=== PATIENT | female | born 1975 | race Caucasian/White ===

== ENCOUNTER 2016-11-09 12:36 | Outpatient (CLI) | payer OTHER ==
[2016-11-09] MEDS ORDERED: IOTHALAMATE MEGLUMINE 50 ML VIAL IVP ONE ×2 (14:47)
[2016-11-09] MEDS ORDERED: BUFFERED LIDOCAINE 10 ML SYRINGE IU ONE (14:47)
[2016-11-09] MEDS ORDERED: GADOPENTETATE DIMEGLUMINE 5 ML VIAL IVP ONE ×2 (14:47)
== END 2016-11-09 12:37 | disposition home or self-care (01) ==
DX: M25.812 Other specified joint disorders, left shoulder (principal)
CPT/HCPCS: 23350; 73222; 77002; Q9961

== ENCOUNTER 2017-02-09 08:00 | Outpatient (CLI) | payer OTHER ==
--- NOTE | 2017-02-09 16:31 | MRI Report ---
EXAM: MRI BRAIN WITHOUT CONTRAST EXAM DATE: 02/09/2017 08:57 a.m. CLINICAL HISTORY: Post-concussion syndrome. COMPARISON: None. TECHNIQUE: Multiplanar, multisequence T1-weighted and fluid-sensitive MR sequences of the brain were performed. Sequences optimized for routine evaluation. Other: None. IV Contrast: None. FINDINGS: The diffusion-weighted images are normal. There is no evidence of acute or subacute cerebral infarcti on. The pituitary and sella are normal. The corpus callosum is of normal size and configuration. The lifts and cranes inspector niocervical junction is normal. There is mild mucosal thickening in the bilateral maxillary sinuses. The bilateral parotid spaces exhibit normal signal intensity. The optic nerves demonstrate symmetric signal intensity and size. The T2 axial FLAIR images are norm al. The T2* sequence is normal. There is no evidence of subacute or chronic hemorrhage. IMPRESSION: 1. There is no evidence of acute or subacute cerebral infarction. 2. There is no significant white matter disease or evidence of brain mass. There is no evidence of di ffuse axonal injury. Referring Provider Line: [phone] SITE ID: [id number]
== END 2017-02-09 08:01 | disposition home or self-care (01) ==
LOC: DI 08:00
PROVIDERS: ATTEND Psychiatry & Neurology Neurology
DX: F07.81 Postconcussional syndrome (principal)
CPT/HCPCS: 70551

== ENCOUNTER 2019-08-28 11:18 | Outpatient (CLI) | payer OTHER ==
--- NOTE | 2019-09-02 15:09 | Mammography Report ---
Reason: SCREENING MAMMO Procedure Date: 08/28/2019 Accession Number: [id number] / [id number] Procedure: MGN - Screening Mammo Dig Bilat CPT Code: Final Report FULL RESULT: EXAM: Screening Mammo Dig Bilat DATE: 08/28/2019 11:37 AM CLINICAL HISTORY: Routine screening TECHNIQUE: (B) - Bilateral CC and MLO views were obtained. COMPARISON: 07/02/2017 and 05/16/2016 PARENCHYMAL PATTERN: (D) - The breasts demonstrate heterogeneously dense fibroglandular parenchyma bilaterally. FINDINGS: No significant interval change. There are no suspicious masses, calcifications, or areas of distortion. IMPRESSION: Negative examination. BI-RADS category 1. RECOMMENDATION: (ANNUAL) - Recommend routine annual screening mammography. BI-RADS CATEGORY: (1) - Negative. STANDARD QUALIFYING STATEMENTS: 1. This examination was not reviewed with the aid of Computer-Aided Detection (CAD). 2. A negative or benign imaging report should not preclude biopsy if clinically suspicious findings are present. 3. Dense breasts may obscure an underlying neoplasm. 4. This examination was reviewed without the aid of 3D breast imaging (tomosynthesis).
== END 2019-08-28 11:19 | disposition home or self-care (01) ==
LOC: DI.N 11:18
DX: Z12.31 Encounter for screening mammogram for malignant neoplasm of breast (principal)
CPT/HCPCS: 77067

== ENCOUNTER 2021-10-09 15:37 | Outpatient (CLI) | payer OTHER ==
--- NOTE | 2021-10-10 08:47 | Mammography Report ---
BILATERAL DIGITAL SCREENING MAMMOGRAM 3D/2D: 10/09/2021 CLINICAL: Routine screening. Comparison is made to exams dated: 08/28/2019 mammogram and 07/02/2017 mammogram - [facility]. The tissue of both breasts is heterogeneously dense. This may lower the sensitivity of ma mmography. No significant masses, calcifications, or other findings are seen in either breast. There has been no significant interval change. IMPRESSION: NEGATIVE There is no mammographic evidence of malignancy. A 1 year screening mammogram is recommended. This exam was interpreted at Station ID: [id number]. NOTE: For mammograms, a report in lay terms will be sent to the patient. Approximately 15% of breast malignancies will not be visualized mammographically. In the management of a palpable breast mass, a negative mammogram must not discourage biopsy of a clinically suspicious lesion. Electronically Signed By: Manuel Morris M.D. aty/penrad:10/10/2021 08:31:43 ACR BI-RADS Category 1: Negative 3341F PARENCHYMAL PATTERN: (D) - The breast(s) demonstrate(s) heterogeneously dense fibroglandular parenchy ma. BI-RADS CATEGORY: (1) - 1 RECOMMENDATION: (ANNUAL) - Recommend routine annual screening mammography. [id number] 1 year screening LATERALITY: (B)
== END 2021-10-09 15:38 | disposition home or self-care (01) ==
LOC: DI.N 15:37
PROVIDERS: ATTEND Obstetrics & Gynecology
DX: Z12.31 Encounter for screening mammogram for malignant neoplasm of breast (principal)

== ENCOUNTER 2021-11-09 08:36 | Day surgery (SDC) | payer OTHER ==
[~2021-11-09 08:36] MED LIST: BUPIVACAINE 0.25% PF 10 ML VIAL ONE; LIDOCAINE 2%-EPI 1:100000 20 ML MDV ONE
[2021-11-09 09:01] LABS: HCG UR QUAL NEGATIVE
[2021-11-09] MEDS ORDERED: LACTATED RINGERS 1,000 ML IV ONE ×2 (09:08→10:33)
[2021-11-09] MEDS ORDERED: BUPIVACAINE 0.25% PF 10 ML VIAL ONE (09:14)
--- NOTE | 2021-11-09 09:14 | HISTORY & PHYSICAL EXAMINATION ---
History and Physical - History and Physical HPI: 46-year-old G1 presenting today for hysteroscopy D&C and endometrial ablation secondary to heavy, prolonged uterine bleeding. She did get some benefit from OCPs, but this stopped being effective. Cycles are still regular but are very heavy and painful. Last endometrial biopsy was in 2019 and was normal per patient. All other symptoms reviewed and were negative except per HPI. PMH History of SVT: History of attempted cardiac ablation for SVT, but catheterization stops the arrhythmia and procedure stopped and she has not had issues since. GERD PSH Colonoscopy Right shoulder rotator cuff repair Cardiac ablation SH Denies tobacco, alcohol, drugs Family History Father: Asthma Brother: Asthma Maternal grandmother: Cervical cancer, CVA Aunt: Breast cancer Allergies No known drug allergies Medications Vitamin supplements. Physical exam: Temp Pulse Resp BP Pulse Ox 97.9 F 82 18 129/93 H 97 11/09/21 08:45 11/09/21 08:45 11/09/21 08:45 11/09/21 08:45 11/09/21 08:45 General: Alert, oriented, no acute distress Head: Normal cephalic atraumatic Eyes: PERRLA, extraocular motions intact. Respiratory: Normal rate of respiration. No accessory muscle use, normal respiratory effort. Cardiovascular: Regular rate and rhythm Abdomen: Soft, nontender, nondistended Extremities: Normal range of motion Neuro: Oriented x3. Normal movements Psych: Appropriate mood and affect. Normal judgment and insight Imaging: Ultrasound from 09/07/2021 showed an anteverted uterus measuring 7 to 8 cm, approximate 4 cm wide, 3 cm high. Plan 46-year-old G0 with heavy, prolonged, painful uterine bleeding. 1. Heavy, prolonged, painful uterine bleeding. Discussed risks and benefits of endometrial ablation. Desires control of her bleeding, and discussed other methods such as IUD. OCPs were helpful, but has not to try another hormonal method. Discussed ablation versus increased risks of hysterectomy and patient would like to proceed with the ablation. We also discussed not having a recent endometrial biopsy. She is overall low risk for endometrial carcinoma given her symptom profile and age. Discussed hysteroscopy and D&C at time of procedure prior to ablation. We discussed that although she is low risk, there is a brandon ce we find something which would require her to be sent to gynecologic oncology and would likely result in a hysterectomy if cancer cells were found. This would make this procedure unnecessary. As she is low risk, she desires to proceed with both procedures at the same time. 2. Contraceptive counseling: Patient except risk of not performing concomitant BTL. She is low risk for and if this changes or suspect she should be , she should have low threshold to contact us as it could be dangerous getting after an ablation.
[2021-11-09] MEDS ORDERED: NALOXONE 0.4 MG/ML VIAL IVP PRN (09:18)
[2021-11-09] MEDS ORDERED: ONDANSETRON 4 MG/2 ML VIAL IVP PRN (09:18)
[2021-11-09] MEDS ORDERED: METOCLOPRAMIDE 10 MG/2 ML VIAL IVP PRN (09:18)
[2021-11-09] MEDS ORDERED: HYDROmorphone 0.5 MG/0.5 ML SYRINGE IVP PRN (09:18)
[2021-11-09] MEDS ORDERED: MORPHINE 2 MG/ML CARPUJECT IVP PRN (09:18)
[2021-11-09] MEDS ORDERED: fentaNYL 100 MCG/2 ML VIAL IVP PRN (09:18)
[2021-11-09] MEDS ORDERED: ePHEDrine 50 MG/ML VIAL IVP PRN (09:18)
[2021-11-09] MEDS ORDERED: ATROPINE ABBOJECT 1 MG/10 ML SYRINGE IVP PRN (09:18)
--- NOTE | 2021-11-09 09:20 | ANESTHESIA ---
Pre-Anesthesia VS, & Labs - Diagnosis abnormal uterine bleeding - Procedure Myosure hysteroscopy, D&C, Novasure Vital Signs: Temp Pulse Resp BP Pulse Ox 36.6 C 82 18 129/93 H 97 11/09/21 08:45 11/09/21 08:45 11/09/21 08:45 11/09/21 08:45 11/09/21 08:45 Height: 5 ft 3 in Weight (kg): 70.5 kg Body Mass Index: 27.5 BMI Classification: Overweight - NPO >8 hours - Is Patient ?: No - Lab Results Lab results reviewed: Yes Home Medications and Allergies Home Medications: Ambulatory Orders Cetirizine [ZyrTEC] 10 mg PO DAILY 10/31/21 Ibuprofen [Motrin] 600 mg PO Q6H PRN 10/31/21 Rabeprazole Sodium [Aciphex] 20 mg PO DAILY 10/31/21 diphenhydrAMINE [Benadryl] 25 mg PO HS 10/31/21 Active Medications Atropine Sulfate (Atropine Abboject 1 Mg/10 Ml Syringe) 0.5 mg IVP Q5M PRN PRN Reason: Bradycardia Stop: 11/10/21 09:18 Ephedrine Sulfate (Ephedrine 50 Mg/Ml Vial) 10 mg IVP Q5M PRN PRN Reason: HYPOTENSION Stop: 11/10/21 09:18 Fentanyl (Fentanyl 100 Mcg/2 Ml Vial) 25 - 50 mcg IVP Q5M PRN PRN Reason: BREAKTHROUGH PAIN (2nd Choice) Stop: 11/10/21 09:18 Hydromorphone HCl (Hydromorphone 0.5 Mg/0.5 Ml Syringe) 0.2 - 0.6 mg IVP Q5M PRN PRN Reason: PAIN (First Choice) Stop: 11/10/21 09:18 Lactated Ringer's (Lr) 1,000 mls @ 100 mls/hr IV .Q10H CARLOS Stop: 11/09/21 19:59 Metoclopramide HCl (Metoclopramide 10 Mg/2 Ml Vial) 10 mg IVP Q6HR PRN PRN Reason: N/V not relieved by Zofran Morphine Sulfate (Morphine 2 Mg/Ml Carpuject) 2 - 4 mg IVP Q5M PRN PRN Reason: PAIN (3rd Choice) Stop: 11/10/21 09:18 Naloxone HCl (Naloxone 0.4 Mg/Ml Vial) 0.1 mg IVP Q2M PRN PRN Reason: RESP RATE <8 Stop: 11/10/21 09:18 Ondansetron HCl (Ondansetron 4 Mg/2 Ml Vial) 4 mg IVP ONCE PRN PRN Reason: N/V (First Choice) Stop: 11/10/21 09:18 Scopolamine HBr (Scopolamine Patch) 1 patch TOP Q3D CARLOS Cetirizine [ZyrTEC] 10 mg PO DAILY 10/31/21 Ibuprofen [Motrin] 600 mg PO Q6H PRN 10/31/21 Rabeprazole Sodium [Aciphex] 20 mg PO DAILY 10/31/21 diphenhydrAMINE [Benadryl] 25 mg PO HS 10/31/21 Allergies/Adverse Reactions: Allergies Allergy/AdvReac Type Severity Reaction Status Date / Time walnut Allergy itchy mouth Verified 10/31/21 14:49 codeine AdvReac Nausea Verified 10/31/21 14:49 mussels AdvReac Nausea Verified 10/31/21 14:49 Anes History & Medical History - Anesthetic History Anesthesia Complications: reports: Emergence delirium Family history of Anesthesia Complications: Denies Family history of Malignant Hyperthermia: Denies - Medical History Cardiovascular: reports: Arrhythmia (s/p ablation for SVT) Gastrointestinal: reports: GERD Urinary: reports: None Musculoskeletal: reports: None Endocrine/Autoimmune: reports: None Skin: reports: Eczema - Surgical History Cardiothoracic: reports: Other Orthopedic: reports: Arthroscopic surgery, Other Exam General: Alert, Oriented x3, Cooperative, No acute distress Dental: WNL Mouth Openin Fingerbreadth Neck Mobility: Normal Mallampati classification: II Plan Anesthesia Type: General Consent for Procedure(s) Verified and Reviewed: Yes Code Status: Attempt Resuscitation ASA classification: 2-Mild systemic disease Is this case an emergency?: No
[2021-11-09] MEDS ORDERED: fentaNYL 100 MCG/2 ML VIAL ONE (09:33)
[2021-11-09] MEDS ORDERED: LIDOCAINE-MPF 2% 5 ML VIAL ONE (09:33)
[2021-11-09] MEDS ORDERED: PROPOFOL 200 MG/20 ML VIAL IVP ONE (09:33)
[2021-11-09] MEDS ORDERED: MIDAZOLAM 2 MG/2 ML VIAL ONE (09:33)
[2021-11-09] MEDS ORDERED: ONDANSETRON 4 MG/2 ML VIAL ONE (09:34)
[2021-11-09] MEDS ORDERED: DEXAMETHASONE 4 MG/ML VIAL ONE (09:34)
[2021-11-09] MEDS ORDERED: LIDOCAINE 2%-EPI 1:100000 20 ML MDV SUBQ ONE (09:52)
[2021-11-09] MEDS ORDERED: ACETAMINOPHEN 1,000 MG/100 ML 100 ML IV ONE (09:53)
[2021-11-09] MEDS ORDERED: BUPIVACAINE 0.25% PF 10 ML VIAL SUBQ ONE (09:53)
[2021-11-09] MEDS ORDERED: SCOPOLAMINE PATCH TOP SCH (10:00)
[2021-11-09] MEDS ORDERED: LACTATED RINGERS 1,000 ML IV SCH (10:00)
--- NOTE | 2021-11-09 10:33 | OPERATIVE REPORT ---
Operative Report - General Procedure Date: 11/09/21 Planned Procedure: Hysteroscopy D&C with endometrial ablation Pre-Op Diagnosis: Abnormal uterine bleeding. Heavy, prolonged, painful perioids Procedure Performed: Hysteroscopy D&C with endometrial ablation Post Op Diagnosis: Abnormal uterine bleeding. Heavy, prolonged, painful perioids - Procedure Note Primary Surgeon: Murray Avendaño MD Anesthesia Provider: Armani Correa CRNA Anesthesia Technique: General ET tube Pathology: Endometrial curettings IV Fluids (mL): 800 Estimated Blood Loss (mL): 5 Urine Output (mL): 50 Complications: None - Other Other Information/Narrative: Patient was taken to the procedure room and placed in dorsal lithotomy position. Hibiclens was used to clean the operative area. [place] speculum was palced in the vagina and the cervix was visualized. The anterior lip the cervix was grasped with a single-tooth tenaculum. The cervix was initially difficult to dilate, and the cervix tore from the tenaculum twice. These areas were hemostatic. After dilation, the hysteroscope was then used to hydrodilate using normal saline distention media. Hysteroscope was advanced without difficulty using hydrodistention. Cervical canal was noted to have no lesions. Upon entry into the internal cervical os there was noted to be normal-appearing endometrium within the uterus without obvious lesion. Bilateral tubal ostia were noted. Hysteroscope was then removed. A sharp curette was then inserted the cervix with gentle scraping around the uterus and curettings were collected on Telfa and were sent to pathology. The uterus sounded to 7 cm with a 2 cm cervix for a cavity length of 5 cm. The NovaSure device was then opened and checked for normal working procedure. The device was inserted through the cervical os to the fundus then deployed. It was manipulated during deployment to assess the uterine width which was noted to be 3 cm. This had a power of 83 W. The device was then checked for cavity patency and was confirmed. The device was then deployed for burning. After approximate 30 seconds, the seal was lost, likely due to the tears in the cervix and the tenaculum was repeat positioned and the device was redeployed. 51 seconds of NovaSure deployment time were then noted. Tenaculum was then removed from the cervix noted to be hemostatic. All instruments removed from the vagina. The patient was removed from dorsal lithotomy and taken to the PACU in stable condition. Fluid deficit 85.
--- NOTE | 2021-11-09 10:56 | ANESTHESIA POST OP EVALUATION ---
Anesthesia Post Eval - Post Anesthesia Eval Vitals: Last Vital Signs Temp 36.2 C L 11/09/21 10:45 Pulse 79 11/09/21 10:45 Resp 12 11/09/21 10:45 BP 133/92 H 11/09/21 10:45 Pulse Ox 100 11/09/21 10:45 CV Function Including HR & BP: Stable Pain Control: Satisfactory Nausea & Vomiting: Negative Mental Status: Baseline Respiratory Status: Airway Patent Hydration Status: Satisfactory Anesthesia Complications: None
[2021-11-09] MEDS ORDERED: HYDROcod/ACETAM 5/325 MG TABLET PO PRN (11:25)
[2021-11-09] MEDS ORDERED: oxyCODONE 5 MG TABLET PO PRN (11:34)
[2021-11-09 11:56] VITALS: BP 138/98
== END 2021-11-09 08:37 | disposition home or self-care (01) ==
LOC: SDS 08:36
PROVIDERS: ATTEND Obstetrics & Gynecology
PROC: 0UDB7ZZ Extraction of Endometrium, Via Natural or Artificial Opening (ICD-10-PCS; 2021-11-09)
PROC: 0U5B8ZZ Destruction of Endometrium, Via Natural or Artificial Opening Endoscopic (ICD-10-PCS; principal; 2021-11-09 09:30)
DX: N93.9 Abnormal uterine and vaginal bleeding, unspecified (principal); N94.6 Dysmenorrhea, unspecified
CPT/HCPCS: 58563; 81025; A9270; J0131; J3490; J7120

== ENCOUNTER 2022-05-21 06:35 | Day surgery (SDC) | payer OTHER ==
[2022-05-21] MEDS ORDERED: MIDAZOLAM 2 MG/2 ML VIAL ONE (06:58)
[2022-05-21] MEDS ORDERED: PROPOFOL 500 MG/50 ML 500 MG/50 ML VIAL ONE (06:58)
[2022-05-21] MEDS ORDERED: LACTATED RINGERS 1,000 ML IV ONE ×2 (07:00→07:53)
--- NOTE | 2022-05-21 07:09 | ANESTHESIA ---
Pre-Anesthesia VS, & Labs - Diagnosis screening - Procedure colonoscopy Vital Signs: Temp Pulse Resp BP Pulse Ox O2 Flow Rate 36.6 C 80 16 137/84 H 99 05/21/22 06:55 05/21/22 06:55 05/21/22 06:55 05/21/22 06:55 05/21/22 06:55 Height: 5 ft 4 in Weight (kg): 64.5 kg Body Mass Index: 24.4 BMI Classification: Normal - NPO >8 hours - Is Patient ?: No - Lab Results Lab results reviewed: Yes Home Medications and Allergies Cetirizine [ZyrTEC] 10 mg PO DAILY 10/31/21 Rabeprazole Sodium [Aciphex] 20 mg PO DAILY 10/31/21 diphenhydrAMINE [Benadryl] 25 mg PO PRN PRN 10/31/21 Allergies/Adverse Reactions: Allergies Allergy/AdvReac Type Severity Reaction Status Date / Time walnut Allergy itchy mouth Verified 05/18/22 11:20 codeine AdvReac Nausea Verified 05/18/22 11:20 mussels AdvReac Nausea Verified 05/18/22 11:20 Anes History & Medical History - Anesthetic History Anesthesia Complications: reports: No previous complications Family history of Anesthesia Complications: Denies Family history of Malignant Hyperthermia: Denies - Medical History Cardiovascular: reports: Arrhythmia Gastrointestinal: reports: GERD Urinary: reports: None Musculoskeletal: reports: None Endocrine/Autoimmune: reports: None Skin: reports: Eczema - Surgical History Cardiothoracic: reports: Other Orthopedic: reports: Arthroscopic surgery, Other Exam General: Alert, Oriented x3, Cooperative Dental: WNL Mouth Openin Fingerbreadth Neck Mobility: Normal Mallampati classification: II Thyromental Distance: 4-6 cm Respiratory: Lungs clear, Normal breath sounds, No respiratory distress Cardiovascular: Regular rate Neurological: Normal speech Mental/Cognitive Status: Alert/Oriented X3, Normal for patient Cognitive Status: Within normal limits Plan Anesthesia Type: Total IV Consent for Procedure(s) Verified and Reviewed: Yes Code Status: Attempt Resuscitation ASA classification: 2-Mild systemic disease Is this case an emergency?: No
[2022-05-21 08:17] VITALS: BP 119/89
--- NOTE | 2022-05-21 09:20 | ANESTHESIA POST OP EVALUATION ---
Anesthesia Post Eval - Post Anesthesia Eval Vitals: Last Vital Signs Temp 36.3 C L 05/21/22 08:17 Pulse 59 L 05/21/22 08:17 Resp 14 05/21/22 08:17 BP 119/89 H 05/21/22 08:17 Pulse Ox 100 05/21/22 08:17 O2 Flow Rate CV Function Including HR & BP: Stable Pain Control: Satisfactory Nausea & Vomiting: Negative Mental Status: Baseline Respiratory Status: Airway Patent Hydration Status: Satisfactory Anesthesia Complications: None
== END 2022-05-21 06:36 | disposition home or self-care (01) ==
LOC: SDS 06:35
PROVIDERS: ATTEND Surgery
DX: Z12.11 Encounter for screening for malignant neoplasm of colon (principal); K21.9 Gastro-esophageal reflux disease without esophagitis
CPT/HCPCS: 45378; J7120

== ENCOUNTER 2022-05-31 21:53 | Outpatient (CLI) | payer OTHER | END 2022-05-31 21:54 | disposition critical access hospital (66) | LOC: EMS 21:53 | DX: R55 Syncope and collapse (principal); R42 Dizziness and giddiness; R20.2 Paresthesia of skin | CPT/HCPCS: A0425; A0427 ==

== ENCOUNTER 2022-05-31 22:09 | Emergency (ER) | payer OTHER ==
[2022-05-31] MEDS ORDERED: SODIUM CHLORIDE 0.9% 1,000 ML IV STA (22:18)
--- NOTE | 2022-05-31 22:19 | ED Physician Documentation ---
History of Present Illness - Stated complaint Stated Complaint: SYNCOPE - History obtained from History obtained from: Patient, EMS - Additonal information Additional information: 47-year-old woman with history of TBI but subsequent full recovery gave blood this afternoon. She got home and was feeling fine but they took off the bandage and was still bleeding a bit. She became presyncopal for a minute or 2 and sat down but subsequently had 2 episodes of syncope associated with some choking and myoclonic jerking. There is no associated chest pain or trouble breathing. She feels mostly back to normal now except foggy and out of it. Denies pedal edema or calf pain. There is absolutely no possibility of between not having intercourse with cisgender men and a uterine ablation. Review of Systems Ten Systems: 10 systems reviewed and negative Constitutional: denies: Fever, Chills Cardiac: denies: Chest pain / pressure, Palpitations Respiratory: denies: Dyspnea, Cough PD PAST MEDICAL HISTORY - Past Medical History Cardiovascular: Arrhythmia Endocrine/Autoimmune: None GI: GERD : None HEENT: Chronic vision loss, Chronic sinusitis Psych: ADD/ADHD, Post traumatic stress disorder Musculoskeletal: None Derm: Eczema - Past Surgical History Ortho: Arthroscopic surgery, Other Cardiovascular: Other - Present Medications Home Medications: Ambulatory Orders Medication Instructions Recorded Confirmed Cetirizine [ZyrTEC] 10 mg PO DAILY 10/31/21 05/31/22 Rabeprazole Sodium [Aciphex] 20 mg PO DAILY 10/31/21 05/31/22 Ferrous Sulfate [Feosol] 325 mg PO BID #60 tablet 05/31/22 - Allergies Allergies/Adverse Reactions: Allergies Allergy/AdvReac Type Severity Reaction Status Date / Time walnut Allergy itchy mouth Verified 05/31/22 22:24 codeine AdvReac Nausea Verified 05/31/22 22:24 mussels AdvReac Nausea Verified 05/31/22 22:24 PD ED PE NORMAL - Vitals Vital signs reviewed: Yes - General General: Alert and oriented X 3, No acute distress - HEENT HEENT: PERRL, EOMI - Neck Neck: Supple, no meningeal sign, No bony TTP - Cardiac Cardiac: RRR, No murmur - Respiratory Respiratory: No respiratory distress, Clear bilaterally - Abdomen Abdomen: Normal bowel sounds, Soft, Non tender - Back Back: No CVA TTP, No spinal TTP - Derm Derm: Normal color, Warm and dry - Extremities Extremities: No edema, No calf tenderness / cord - Neuro Neuro: Alert and oriented X 3, Normal speech - Psych Psych: Normal mood, Normal affect Results - Vitals Vitals: Vital Signs - 24 hr 05/31/22 05/31/22 05/31/22 22:19 22:26 22:30 Temperature 36.2 C L Heart Rate 78 67 74 Respiratory 14 14 13 Rate Blood Pressure 124/86 H 122/83 H O2 Saturation 98 95 98 05/31/22 23:00 Temperature Heart Rate 72 Respiratory 13 Rate Blood Pressure 113/74 O2 Saturation 99 Oxygen O2 Source Room air - EKG (time done) 2216 Rate: Rate (enter#) (66) Rhythm: NSR [place]: Normal Intervals: Normal OK QRS: Normal Ischemia: Normal ST segments - Labs Labs: Laboratory Tests 05/31/22 05/31/22 22:32 22:32 WBC 10.6 RBC 3.74 L Hgb 9.9 L Hct 31.5 L MCV 84.2 MCH 26.5 L MCHC 31.4 L RDW 13.3 Plt Count 247 MPV 10.4 Neut # (Auto) 7.2 H Lymph # (Auto) 2.5 [place] # (Auto) 0.6 Eos # (Auto) 0.2 Baso # (Auto) 0.1 Absolute Nucleated RBC 0.00 Nucleated RBC % 0.0 Sodium 136 Potassium 3.4 L Chloride 105 Carbon Dioxide 24 Anion Gap 7.0 BUN 9 Creatinine 0.8 Estimated GFR (MDRD) 77 L Glucose 142 H Calcium 8.2 L Magnesium 1.7 Total Bilirubin 0.4 AST 17 ALT 16 Alkaline Phosphatase 51 Total Protein 5.5 L Albumin 3.4 Globulin 2.1 Albumin/Globulin Ratio 1.6 PD MEDICAL DECISION MAKING - ED course ED course: 47yo with syncope p blood donation today. Found to be anemic, no prior for comp- d/w pt need for pcp f/u for same. Syncope prob multifactorial vagal + anemic + volume down d/t blood donation. Departure - Departure Disposition: 01 Home, Self Care Clinical Impression: Syncope Qualifiers: Syncope type: unspecified Qualified Code(s): R55 - Syncope and collapse Anemia Qualifiers: Anemia type: unspecified type Qualified Code(s): D64.9 - Anemia, unspecified Condition: Good Record reviewed to determine appropriate education?: Yes Instructions: ED Syncope Vasovagal Prescriptions: Ferrous Sulfate [Feosol] 325 mg PO BID #60 tablet Comments: As discussed, we found you tonight to be moderately anemic of unclear acuity. Your hemoglobin of 9.9 and hematocrit of 31.5. We do not have old labs to compare with. For this I am prescribing an iron supplement and should follow-up with your primary care physician, I would recommend not giving blood again until your primary care physician okays it. Also your blood sugar was elevated at 142. Probably a combination of nonfasting state and a stress reaction. This should also be rechecked with routine labs. Take it easy tonight. Return for new or worsening symptoms. Follow-up with your primary care physician, next available appointment. Discharge Date/Time: 05/31/22 23:13
[2022-05-31 22:35] LABS: BASOPHILS # (AUTO) 0.1 10^3/uL (0.0-0.1); BASOPHILS % (AUTO) 0.6 %; EOSINOPHILS # (AUTO) 0.2 10^3/uL (0.0-0.7); EOSINOPHILS % (AUTO) 1.5 %; HCT - HEMATOCRIT 31.5 % (37.0-47.0); HGB - HEMOGLOBIN 9.9 g/dL (12.0-16.0); LYMPHOCYTES # (AUTO) 2.5 10^3/uL (1.5-3.5); LYMPHOCYTES % (AUTO) 23.5 %; MEAN CORPUSCULAR HEMOGLOBIN 26.5 pg (27.0-31.0); MEAN CORPUSCULAR HGB CONC 31.4 g/dL (32.0-36.0); MEAN CORPUSCULAR VOLUME 84.2 fL (81.0-99.0); MEAN PLATELET VOLUME 10.4 fL (7.9-10.8); MONOCYTES # (AUTO) 0.6 10^3/uL (0.0-1.0); MONOCYTES % (AUTO) 5.8 %; NEUTROPHILS # (AUTO) 7.2 10^3/uL (1.5-6.6); NEUTROPHILS % (AUTO) 68.3 %; PLT - PLATELET COUNT 247 10^3/uL (130-450); RED BLOOD COUNT 3.74 10^6/uL (4.20-5.40); RED CELL DISTRIBUTION WIDTH 13.3 % (12.0-15.0); WHITE BLOOD COUNT 10.6 x10^3/uL (4.8-10.8)
[2022-05-31 22:50] LABS: ALBUMIN 3.4 g/dL (3.2-5.5); ALBUMIN/GLOBULIN RATIO 1.6 (1.0-2.2); BILIRUBIN,TOTAL 0.4 mg/dL (0.2-1.0); CALCIUM 8.2 mg/dL (8.5-10.3); CREATININE 0.8 mg/dL (0.4-1.0); MAGNESIUM 1.7 mg/dL (1.7-2.8); POTASSIUM 3.4 mmol/L (3.5-5.0); TOTAL PROTEIN 5.5 g/dL (6.7-8.2)
[2022-05-31 23:03] VITALS: BP 113/74
== END 2022-05-31 23:13 | disposition home or self-care (01) ==
LOC: EDUNIT# → ED 22:09
DX: R55 Syncope and collapse (principal); D64.9 Anemia, unspecified; R73.9 Hyperglycemia, unspecified
CPT/HCPCS: 36415; 80053; 83735; 85025; 93005; 96360; 99284

== ENCOUNTER 2022-07-14 09:02 | Outpatient (CLI) | payer OTHER ==
[~2022-07-14 09:02] MED LIST changes: -BUPIVACAINE 0.25% PF 10 ML VIAL ONE; +GADOBUTROL 7.5 MMOL/7.5 ML VIAL ONE; -LIDOCAINE 2%-EPI 1:100000 20 ML MDV ONE
[2022-07-14] MEDS ORDERED: GADOBUTROL 7.5 MMOL/7.5 ML VIAL IVP ONE (09:43)
--- NOTE | 2022-07-16 08:35 | MRI Report ---
PROCEDURE: BRAIN W/WO INDICATIONS: POST CONCUSSIONAL SYNDROME CONTRAST: 6.2 mL Gadavist TECHNIQUE: Noncontrast axial T1 spin echo, axial T2 fast spin echo, sagittal and axial FLAIR, coronal T2 fast sp in echo, axial gradient echo, axial diffusion and ADC through the brain. After the administration of contrast, axial and coronal T1 spin echo with fat saturation through the brain. COMPARISON: 02/09/2017 brain MRI FINDINGS: Image quality: Excellent. CSF spaces: Basal cisterns are patent. No extra-axial fluid collections. Ventricles are normal in size and shape. Brain: No midline shift. No intracranial bleeds or masses. No abnormal intracranial enhancement. There is cerebral volume loss for age. There is periventricular white matter chronic small vessel is chemic change. The brainstem appears normal. Diffusion-weighted images demonstrate no acute ischemi c insults. No chronic ischemic insults. Normal intravascular flow voids are present. Skull and face: Calvarial marrow is normal in signal. Orbits appear normal. Sinuses: Sinuses and mastoids appear clear. IMPRESSION: Normal MRI of the brain. Reviewed by: Geovani Claros MD on 07/16/2022 8:34 AM PST Approved by: Geovani Claros MD on 07/16/2022 8:34 AM PST Station ID: [id number]
== END 2022-07-14 09:03 | disposition home or self-care (01) ==
LOC: DI 09:02
PROVIDERS: ATTEND Nurse Practitioner Family
DX: F07.81 Postconcussional syndrome (principal); F80.89 Other developmental disorders of speech and language
CPT/HCPCS: 70553; A9585